=== PATIENT | female | born 1990 | race Caucasian/White ===

== ENCOUNTER 2020-06-24 13:04 | Outpatient (RCR) | payer BC, SELFPAY ==
[2020-06-22] MEDS: RHO(D) IMMUNE GLOBULIN 300 MCG SYRINGE IM (17:29)
== END 2020-09-20 23:59 | disposition home or self-care (01) ==
LOC: ANHLAB 13:04
PROVIDERS: Visit Provider Obstetrics & Gynecology Gynecology
DX: Z29.13 Encounter for prophylactic Rho(D) immune globulin (principal); O36.0990 Maternal care for other rhesus isoimmunization, unspecified trimester, not applicable or unspecified; Z3A.00 Weeks of gestation of pregnancy not specified
CPT/HCPCS: 36415; 84702; 85461; 90384; 96372; J2790